=== PATIENT | female | born 1965 | race Hispanic/Latino ===

== ENCOUNTER → 2019-01-28 | Outpatient (CLI) | payer SELFPAY ==
--- NOTE | 2019-01-28 08:33 | Diagnostic Imaging Report ---
Exam: Abdominal film Clinical History: Constipation Comparison: None. DISCUSSION: The bowel gas pattern shows no dilated, air-filled loops of bowel. Gas and fecal material is noted throughout the large bowel and rectum. No mass effect or organomegaly. Pelvic phleboliths. Otherwise no abnormal calcifications. Surgical clips project over the right upper quadrant, compatible with prior cholecystectomy. Regional skeletal structures are intact. Mild degenerative arthrosis of the hips. IMPRESSION: Nonobstructive bowel gas pattern. Large amount of fecal material within the colon in keeping with the provided clinical history of constipation. Signed by: Dr. Pablo Vieira M.D. on 01/28/2019 8:30 AM
--- NOTE | 2019-02-14 08:40 | Diagnostic Imaging Report ---
#[id number] - [id number] #BILATERAL DIGITAL SCREENING MAMMOGRAM WITH CAD: 01/28/2019 CLINICAL: Routine screening. Comparison is made to exam dated: 09/09/2016 mammogram - [facility]. Current study contains 4 films. The tissue of both breasts is heterogeneously dense. This may lower the sensitivity of mammography. Current study was also evaluated with a Computer Aided Detection (CAD) system. Benign appearing calcifications are noted bilaterally and appear unchanged. No significant masses, calcifications, or other findings are seen in either breast. IMPRESSION: BENIGN There is no mammographic evidence of malignancy. A 1 year screening mammogram is recommended. The patient will be notified by letter of the results. KAROL SOLORZANO M.D. ct/penrad:02/11/2019 11:57:13 Nail Expert: Yina SOW(R)(M), [facility] letter sent: Compared to Prior B9 Mammogram BI-RADS: 2 Benign
== END ==
LOC: MAMMO 07:46
PROVIDERS: ATTEND Internal Medicine
DX: Z12.31 Encounter for screening mammogram for malignant neoplasm of breast (principal); K59.00 Constipation, unspecified
CPT/HCPCS: 74018; 77067

== ENCOUNTER → 2020-03-06 | Outpatient (CLI) | payer OTHER | LOC: MAMMO 10:53 | PROVIDERS: ATTEND Internal Medicine | DX: Z12.31 Encounter for screening mammogram for malignant neoplasm of breast (principal) | CPT/HCPCS: 77067 ==

== ENCOUNTER → 2021-03-28 | Outpatient (CLI) | payer OTHER | LOC: MAMMO 12:41 | PROVIDERS: ATTEND Internal Medicine | DX: Z12.31 Encounter for screening mammogram for malignant neoplasm of breast (principal) | CPT/HCPCS: 77067 ==

== ENCOUNTER → 2022-01-20 | Outpatient (CLI) | payer OTHER | LOC: MAMMO 07:50 | PROVIDERS: ATTEND Internal Medicine | DX: Z12.31 Encounter for screening mammogram for malignant neoplasm of breast (principal); Z13.820 Encounter for screening for osteoporosis | CPT/HCPCS: 77067; 77080 ==